=== PATIENT | female | born 1960 | race American Indian/Alaskan Native ===

== ENCOUNTER 2019-05-06 10:50 | Day surgery (SDC) | payer BC, OTHER ==
[~2019-05-06 10:50] MED LIST: NACL 0.9% 1000 ML 1,000 ML IV SCH
--- NOTE | 2019-05-06 12:28 | Anesthesia Consultation ---
Anesthesia Consult and Med Hx Date of service: 05/06/19 - Airway Anesthetic Teeth Evaluation: Good (some missing teeth) ROM Head & Neck: Adequate Mental/Hyoid Distance: Adequate Mallampati Class: Class II Intubation Access Assessment: Probably Good - Pre-Operative Health Status ASA Pre-Surgery Classification: ASA2 Proposed Anesthetic Plan: MAC - Cardiovascular System Hx Hypertension: Yes
--- NOTE | 2019-05-06 12:30 | Anesthesia Day of Surgery ---
Anesthesia Day of Surgery - Day of Surgery Patient Examined: Yes Patient H&P Reviewed: Yes Patient is NPO: Yes
[2019-05-06] MEDS ORDERED: DIPRIVAN 10 MG/ML IV ONE ×2 (13:29)
[2019-05-06] MEDS ORDERED: XYLOCAINE MPF 2% ONE (13:30)
--- NOTE | 2019-05-06 13:33 | Procedure Note ---
Date of procedure: 05/06/19 Pre-op diagnosis: Abdominal Pain/ Colon Polyp Screening/ Family H/O Cancer Post-op diagnosis: other (Moderate,Distal Erosive Esophagitis/ Gastric Nodule/ Gastritis/ No Colon Polyps noted/ Extensive,Diverticular Disease/ Moderately,Large External Hemorrhoid) Procedure: EGD with Biopsy/ Colonoscopy [place] [facility] [place]: PAPO GARCIA Estimated blood loss: minimal Pathology: list Specimen disposition: to lab Condition: stable Disposition: same day (Treat with PPI and encourage fiber supplements. Avoid aspirin and NSAID for 5 days and follow up in 1 to 2 weeks ([phone]).)
[2019-05-06 15:13] VITALS: BP 142/89
--- NOTE | 2019-05-06 16:13 | Operative Report ---
PROCEDURE: Esophagogastroduodenoscopy with biopsy. INDICATIONS: The patient is a 59-year-old -[place] female originally from the [facility] who has been complaining of some abdominal pain and discomfort. EGD was done to make sure there was not any associated peptic ulcer disease present. Procedure was done after getting informed consent with MAC anesthesia. Instrument was passed to the hypopharynx into the esophagus, which showed moderate distal erosive esophagitis. Biopsy was done from the distal esophagus. The stomach showed gastric nodule in the antrum. It might have been a pancreatic rest. Biopsies and photodocumentation was obtained. Additional biopsy was done from the gastric antrum and the gastric body and incisura to rule out for H. pylori and atrophic gastritis. The pylorus was patent. The duodenum in the first and second portion appeared normal. There was minimal bleeding from the biopsy sites. No complications associated with the biopsy. ASSESSMENT: Abdominal pain, moderate distal erosive esophagitis, gastric nodule involving the antrum, gastritis. PLAN: To treat the patient with PPI, have the patient avoid aspirin and aspirin-related products for the next few days. Follow up in the office in a week's time. Additional adjustment of the treatment will be done according to the biopsy findings. There was minimal bleeding from the biopsy sites. No complications associated with the procedure. Procedure was done with the assistance of anesthesia in the presence of the GI lab team, which included CHARLOTTE Boggs and Felix Kay. The patient is to have a colonoscopy done as part of colon polyp screening. JOB# [id number] RICO/BLAYNE KC
--- NOTE | 2019-05-06 16:47 | Operative Report ---
INDICATIONS: This is a 59-year-old -Slovak female originally from the [facility] who does have a family history of cancer. Colonoscopy was done as part of colon polyp screening. DESCRIPTION OF PROCEDURE: The procedure was done after getting informed consent with MAC anesthesia with the assistance of anesthesia and the GI lab team that included CHARLOTTE Boggs and Brenden Kay. Initial rectal exam showed the presence of a moderately large external hemorrhoid. The instrument was passed through the rectum onto the cecum, which was identified by the ileocecal valve and the appendiceal orifice. Visualization was fair to good. There was moderate diverticular disease noted throughout the colon involving the proximal transverse as well as the left colon. No colon polyps were noted and on retroverted view, no significant internal hemorrhoid was seen. ASSESSMENT: Colon polyp screening, no colon polyps noted. Extensive diverticular disease and moderately large external hemorrhoids. There was no bleeding or complications associated with the procedure. The patient will be encouraged to take fiber supplements as well as hemorrhoidal medication and follow up in the office in 1-2 weeks' time. The procedure was done again in the presence of the GI lab team, which included CHARLOTTE Boggs as well as Felix Kay. JOB# [id number] RICO/BLAYNE KC
== END 2019-05-06 10:51 | disposition home or self-care (01) ==
LOC: GIO 10:50
DX: K64.8 Other hemorrhoids (principal); K20.9 Esophagitis, unspecified; K57.30 Diverticulosis of large intestine without perforation or abscess without bleeding; K29.70 Gastritis, unspecified, without bleeding; K31.9 Disease of stomach and duodenum, unspecified; R10.9 Unspecified abdominal pain; I10 Essential (primary) hypertension; Z98.890 Other specified postprocedural states; Z79.899 Other long term (current) drug therapy
CPT/HCPCS: 43239; 45378; 88305; 88342; J2704; J7030

== ENCOUNTER 2021-01-20 07:25 | Day surgery (SDC) | payer BC, OTHER ==
[~2021-01-20 07:25] MED LIST changes: -NACL 0.9% 1000 ML 1,000 ML IV SCH; +SODIUM CHLORIDE 0.9% 1000 ML 1,000 ML IV SCH
[2021-01-20] MEDS ORDERED: propofoL 200 MG/20 ML VIAL IV ONE ×2 (08:38→08:50)
[2021-01-20] MEDS ORDERED: LIDOCAINE MPF (2%) 20 MG/1 ML VIAL 5 ML ONE (08:40)
--- NOTE | 2021-01-20 09:09 | Anesthesia Consultation ---
Anesthesia Consult and Med Hx Date of service: 01/20/21 - Airway Anesthetic Teeth Evaluation: Good ROM Head & Neck: Adequate Mental/Hyoid Distance: Adequate Mallampati Class: Class I Intubation Access Assessment: Good - Pre-Operative Health Status ASA Pre-Surgery Classification: ASA2 Proposed Anesthetic Plan: MAC - Pulmonary Hx Smoking: No Hx Respiratory Symptoms: No - Cardiovascular System Hx Hypertension: Yes (took antihypertensives this morning) Hx Heart Attack/AMI: No - Central Nervous System CVA: No - Endocrine Hx Renal Disease: No Hx Liver Disease: No Hx Insulin Dependent Diabetes: No Hx Non-Insulin Dependent Diabetes: No Hx Thyroid Disease: No
--- NOTE | 2021-01-20 09:09 | Anesthesia Day of Surgery ---
Anesthesia Day of Surgery - Day of Surgery Patient Examined: Yes Patient H&P Reviewed: Yes Patient is NPO: Yes
--- NOTE | 2021-01-20 09:17 | Procedure Note ---
Date of procedure: 01/20/21 Pre-op diagnosis: GERD and Colon Polyp Screening/F/H/O Cancer Post-op diagnosis: other (Moderate,Erosive Esophagitis/ Gastritis/ No Peptic Ulcer disease note/Moderate,Diverticular Disease (most pronounced in the Left Colon)/ No Colon Polyps noted/Mild to Moderate Internal Hemorrhoids and Moderate External Hemorrhoids) Procedure: EGD with Biopsy and Screening Colonoscopy [place] [facility] [place]geon: PAPO GARCIA Estimated blood loss: minimal Pathology: list Specimen disposition: to lab Condition: stable Disposition: same day (Treat with PPI and Anusol HC Supp. Avoid aspirin and NSAID and anticoagulants for 4 days; otherwise resume home medication and follow up in 1 to 2 weeks ([phone]).)
--- NOTE | 2021-01-20 09:55 | History and Physical Report ---
HISTORY OF PRESENT ILLNESS: A 60-year-old -[place] female originally from the [facility] and [place] who has a strong family history of cancer with multiple family members having different types of cancer including breast cancer, stomach cancer, leukemia. She has lately been noticing some changes in bowel habits and is concerned about possible colon polyps and has come for further colonoscopy to be done. Last colonoscopy was a few years back when she was noted to have diverticular disease. She also on occasion has hematochezia and possibly from internal hemorrhoids, which should also be checked. No history of smoking or alcohol use. No cardiac issues. No flu shots. No known allergies. She has an underlying history of hypertension. PHYSICAL EXAMINATION: VITAL SIGNS: Temperature was 97.7, blood pressure was 162/101, pulse was 71, height is 5 feet 2 inches, weight is 166 pounds. HEENT: Showed no JVD. LUNGS: Clear to auscultation with some reduced breath sounds. CARDIOVASCULAR: Normal. ABDOMEN: Soft. Bowel sounds present. NEUROLOGIC: The patient is alert and oriented. ASSESSMENT: Colon polyp screening, changes in bowel habits, strong family history of cancer. Multiple family members had cancer and hypertension. PLAN: To do a colonoscopy at [facility] to be given as the patient's prep. JOB# [id number] RICO/BLAYNE
--- NOTE | 2021-01-20 10:13 | Post Anesthesia Evaluation ---
- Post Anesthesia Evaluation Patient Participated: Yes Airway Patent: Yes Stable Respiratory Function: Yes Nausea/Vomiting: No Temp > 96.8F: Yes Pain Manageable: Yes Adequeate Hydration: Yes Anesthesia Complications: No
[2021-01-20 10:15] VITALS: BP 138/75
--- NOTE | 2021-01-20 10:15 | Operative Report ---
PROCEDURE: Esophagogastroduodenoscopy with biopsy. INDICATIONS: A 60-year-old female originally from the [facility] in [place] with a strong family history of cancer and a family history of stomach cancer. The patient lately has been having GERD symptoms. EGD was done to assess for the problem. DESCRIPTION OF PROCEDURE: The procedure was done after getting informed consent with MAC anesthesia. Instrument was passed through the hypopharynx into the esophagus, which showed moderate erosive esophagitis. Photo documentation and biopsy was obtained. There was minimal bleeding from the biopsy sites. The stomach showed antral gastritis. No ulcers were noted in the straight or the retroverted view. Pylorus was patent. Duodenum in the first and the second portion appeared normal. Biopsy was done from the gastric antrum, gastric body and angular incisura to rule out for H. pylori and atrophic gastritis. ASSESSMENT: Gastroesophageal reflux disease symptoms, family history of cancer, namely stomach cancer. Moderate erosive esophagitis, gastritis, no peptic ulcer disease noted. PLAN: To treat the patient with PPI, have the patient avoid aspirin and aspirin-related products for the next 4-5 days. Otherwise, resume home medication. Follow up in the office in 1-2 weeks' time. The procedure was done in the GI lab with assistance of the GI lab team, which included the GI nurse; Lico bustillos and with assistance of anesthesia. The patient will be asked to follow up in the office in 1-2 weeks' time. A colonoscopy will also be done for assessment of colon polyps. Last colonoscopy, the patient had done was several years ago. [facility]# [id number] RICO/BLAYNE
--- NOTE | 2021-01-20 10:19 | Operative Report ---
PROCEDURE: Colonoscopy. INDICATIONS: This is a 60-year-old female originally from the [facility] in [place] with a family history of cancer. EGD done prior to the colonoscopy had shown GERD symptoms. It showed moderate erosive esophagitis and gastritis, but no peptic ulcer disease. Colonoscopy was done as part of colon polyp screening. DESCRIPTION OF PROCEDURE: Initial rectal exam showed a moderate external hemorrhoid. Instrument was passed through the rectum onto the cecum, which was identified with ileocecal valve and the appendiceal orifice. There was moderate diverticular disease scattered throughout the colon, most pronounced in the left colon. There were a few scattered diverticula in the proximal colon, the transverse colon. Most of the transverse colon showed normal mucosa. The distal transverse colon showed a few diverticula as did the left colon and the rectum showed [id number] internal hemorrhoid, which may have been the cause of the patient's hematochezia. ASSESSMENT: Colon polyp screening, family history of cancer. No colon polyps noted. Moderate diverticular disease noted, most pronounced in the left colon and hematochezia, possibly secondary to [id number] internal hemorrhoids and external hemorrhoids. There was no bleeding associated with the colonoscopy, no complications associated with this procedure. The patient will be encouraged to take fiber supplements and also to take [id number] hemorrhoidal medication. The patient in addition will be placed on PPI because of the EGD findings of moderate erosive esophagitis, gastritis. Asked to avoid aspirin and aspirin-related products for the next few days and follow up in the office in 1-2 weeks' time. Procedure was done in the GI lab with assistance of the GI lab team, which included the GI nurse; Lico bustillos and with assistance of anesthesia. JOB# [id number] RICO/BLAYNE
== END 2021-01-20 10:20 | disposition home or self-care (01) ==
LOC: GIO 07:25
DX: R19.4 Change in bowel habit (principal); K57.30 Diverticulosis of large intestine without perforation or abscess without bleeding; K64.8 Other hemorrhoids; K21.00 Gastro-esophageal reflux disease with esophagitis, without bleeding; K29.70 Gastritis, unspecified, without bleeding; I10 Essential (primary) hypertension; Z98.890 Other specified postprocedural states; Z79.899 Other long term (current) drug therapy; Z80.0 Family history of malignant neoplasm of digestive organs; Z80.8 Family history of malignant neoplasm of other organs or systems; Z82.49 Family history of ischemic heart disease and other diseases of the circulatory system
CPT/HCPCS: 43239; 45378; 88305; 88342; J2704; J7030